=== PATIENT | male | born 1940 | race American Indian/Alaskan Native ===

== ENCOUNTER 2017-09-05 07:35 | Outpatient (CLI) | payer OTHER ==
[~2017-09-05 07:35] MED LIST: LOTREL 10-20 MG1 CAP; TAMS0.4C
== END 2017-09-05 08:11 | disposition home or self-care (01) ==
LOC: SONOGRAMA 07:35 → MAMO-SONO 08:15
DX: N40.1 Benign prostatic hyperplasia with lower urinary tract symptoms (principal)

== ENCOUNTER 2017-11-13 10:24 | Outpatient (CLI) | payer OTHER | END 2017-11-13 10:29 | disposition home or self-care (01) | LOC: RAD 10:24 | DX: M17.11 Unilateral primary osteoarthritis, right knee (principal) ==

== ENCOUNTER 2017-12-16 10:33 | Outpatient (CLI) | payer OTHER | END 2017-12-16 10:35 | disposition home or self-care (01) | LOC: RAD 10:33 | DX: M17.11 Unilateral primary osteoarthritis, right knee (principal) ==

== ENCOUNTER 2018-08-29 12:02 | Outpatient (CLI) | payer OTHER | END 2018-08-29 16:36 | disposition home or self-care (01) | LOC: RAD 12:02 | DX: D64.89 Other specified anemias (principal); D68.8 Other specified coagulation defects; I10 Essential (primary) hypertension ==

== ENCOUNTER 2018-08-30 08:50 | Outpatient (CLI) | payer OTHER | END 2018-08-30 08:56 | disposition home or self-care (01) | LOC: EKG 08:50 | DX: I10 Essential (primary) hypertension (principal) ==

== ENCOUNTER → 2018-10-12 08:24 | Outpatient (CLI) | payer OTHER | END | disposition home or self-care (01) | LOC: LAB 08:24 | DX: R73.01 Impaired fasting glucose (principal); D68.8 Other specified coagulation defects; D64.89 Other specified anemias; I10 Essential (primary) hypertension ==

== ENCOUNTER 2018-10-15 08:55 | Outpatient (CLI) | payer OTHER | END 2018-10-15 09:01 | disposition home or self-care (01) | LOC: EKG 08:55 | DX: I10 Essential (primary) hypertension (principal); D64.89 Other specified anemias; D68.8 Other specified coagulation defects ==